=== PATIENT | female | born 1990 | race Caucasian/White ===

== ENCOUNTER 2024-08-07 02:00 | Inpatient (IN) ==
--- OUTSIDE RECORDS SUMMARY | 2024-08-07 02:14 | External Medical Summary | Summary of Care ---
Author Name Unknown Organization [facility] Address [address] [place] [address] Phone [phone] Care Team Providers Care Poundmaster Name Role Phone Unavailable Primary Care Provider Unavailabl e Reason for Visit * Reason Comments Return Visit Encounter Details Date Type Department Care Team (Late st Contact Info) Description 07/07/2024 10:45 AM EDT Office Visit Gynecology/Obstetric s [facility] [address] [place] [address] Reyna Wagner CRNP [address] [address] Encounter for supervision of other normal , unspecified trimester*; Umbilical cord cyst during , antepartum; Antepartum anemia complicating Allergies No known active allergiesdocumented as of this encounter (statuses as of 07/07/2024) Medications Gummies 0.18-25 MG Oral Tablet Chewable Take by mouth. Active Breast PumpIndications:B reast feeding status of mother BONNIE 08/04/24, Z39.1, double electric pump 1 Each 5 Active Iron-Vitamin C 65-125 MG Oral Tablet (Vitron C)Indications:Ant epartum anemia complicating Take 1 Tablet by mouth in the morning and 1 Tablet before bedtime. 60 Tablet 3 5 Active documented as of this encounter (statuses as of 07/07/2024) Active Problems Problem Noted Date Diagnosed Date Antepartum anemia complicating 025 Umbilical cord cyst during , antepartum 04/02/2024 Assessment & Plan (04/02/2024 2:28 PM EST): A very small (3mm) cord cyst was seen today adjacent to the umbilical vein in the [place]'s jelly near to the ACI. Color Doppler umbilical flow is seen around the cyst, but the cyst itself is anechoic with no flow internally. Umbilical cysts can occur at any point along the umbilical cord, including at the placental or insertion site. They occur due to mucoid or cystic degeneration of the [place] jelly or are embryonic duct remnants. They are usually a benign finding (pseudocyst with fluid accumulation in blanco's jelly) with no reported adverse outcomes. Differential diagnosis includes umbilical cord varix or umbilical artery aneurysm, however these would show flow on Doppler. A large, fast-growing umbilical cyst may compromise the umbilical cord, but in this case the cord appears normal. Size can be variable but they usually remain stable and some may resolve. We will reassess at ~32 weeks. As required by [place] Act 112, the Patient Test Result Information Act, I have discussed with the patient the significant findings from the diagnostic imaging service performed today. They have expressed their understanding and signed the acknowledgement form. Encounter for supervision of other normal , unspecified trimester 01/28/2024 Estimated Date of Delivery Comme nts Yes 08/04/2024 Based on last me nstrual period of 10/29/2023 (Exact Date) documented as of this encounter (statuses as of 07/07/2024) Resolved Problems Problem Noted Date Diagnosed Date Resolved Date Suspected problem with growth not found 04/02/2004/02/2024 Assessment & Plan (04/02/2024 2:24 PM EST): At your request, Kendal was seen today due to smaller head size on her anatomy survey. Prior report reviewed. Today the head size is on the lower end of the normal range and consistent with the rest of the biometry. Abnormal ultrasound 03/23/2024 Overview (03/23/2024): Biparietal diameter is at the 3rd percentile at 20 wks - to see MFM documented as of this encounter (statuses as of 07/07/2024) Social History Tobacco Use Types Packs/Day Years Used Date Smoking Tobacco: Never Smokeless Tobacco: Never Alcohol Use Standard Drinks/Week Comments Not Currently 0 (1 standard drink = 0.6 oz pur e alcohol) Hunger Vital Sign Answer Date Recorded Within the past 12 months, y ou worried that your food would run out before you got the money to buy more. Never true 03/09/20 24 Within the past 12 months, t he food you bought just didn't last and you didn't have money to get more. Never true 03/09/2024 [place] Depression Scale Answer Date Recorded [place] Depression Scale Total 0 06/18/2024 The thought of harming myself has occurred to me . Never 06/18/2024 Childcare Answer Date Recorded Do you feel overwhelmed with taking care of a child, family member or friend? No 03/09/2024 Does your family need help f inding childcare? (Household - for ages 0-17 years) Not on file 03/09/2024 Clothing Answer Date Recorded Have you been unable to get clothing when it was really needed? No 03/09/2024 Is your family able to get c lothes or diapers when needed? (Household - for ages 0-17 years) Not on file 03/09/2024 Personal Safety Answer Date Recorded Do you feel unsafe or have concerns for your saf ety? No 03/09/2024 Do you have concerns for you r family's safety? (Household - for ages 0-17 years) Not on file 03/09/2024 Utilities Answer Date Recorded Do you have trouble paying y our heating, water, or electric bill? No 03/09/2024 Is your family able to pay t he heat, water, or electric bill? (Household - for ages 0-17 years) Not on file 03/09/2024 Does your family have access to good internet? (Household - for ages 0-17 years) Not on file 03/09/2024 Employment Status Answer Date Recorded Are you unemployed or without regular income? No 03/09/2024 Does the household have a re gular source of income? (Household - for ages 0-17 years) Not on file 03/09/2024 Social Connections Answer Date Recorded How often do you feel lonely or isolated from th ose around you? Never 03/09/2024 Financial Resource Strain Answer Date R ecorded Do you have any trouble payi ng for your medications, or do you think you might in the future? No 03/09/2024 Does your family have troubl e paying for medicine? (Household - for ages 0-17 years) Not on file 03/09/2024 Transportation Needs Answer Date Record ed Do you have trouble getting a ride to medical visits or work? (Adult - for ages 18 years and over) Not on file 03/09/2024 Does your family have a hard time getting a ride to doctors visits? (Household - for ages 0-17 years) Not on file 03/09/2024 Has lack of transportation k ept you from medical appointments, meetings, work, or from getting things needed for daily living? Check all that apply. No 03/09/2024 Do you (or your family) have trouble finding or paying for a ride (transportation)? (Household - for ages 0-17 years) Not on file 03/09/2024 Housing Stability Answer Date Recorded Do you currently live in a s helter or have no steady place to sleep at night? No 03/09/2024 Do you think you are at risk of becoming homeless? (Adult - for ages 18 years and over) Not on file 03/09/2024 Does your family worry about paying for your home or becoming homeless? (Household - for ages 0-17 years) Not on file 1 05/09/2023 Are you homeless or worried that you might be in the future? No 03/09/2024 Are you (or your family) natalie eless or worried that you might be in the future? (Household - for ages 0-17 years) Not on file Food Insecurity Answer Date Recorded Do you need food for this week? No 03/09/2024 Are you able to get enough f ood for your family? (Household - for ages 0-17 years) Not on file 03/09/2024 Does your family need food t his week? (Household - for ages 0-17 years) Not on file 03/09/2024 Do you always have enough fo od for your family? (Household - for ages 0-17 years) Not on file 03/09/2024 Food Insecurity Answer Date Recorded Within the past 12 months, y ou worried that your food would run out before you got the money to buy more. Never true 03/09/20 24 Within the past 12 months, t he food you bought just didn't last and you didn't have money to get more. Never true 03/09/2024 Do you need food for this week? 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 Feeling great. Noticed a little swelling after taking a hike last weekend, otherwise no issues with edema. Unable to determine position- ?transverse. Will obtain u/s for position check with next visit. GBS today. Hygiene Assistant Documentation Provider requested sand shoveler. Name of sand shoveler: SHAMIKA Reece * Maddie Cook CMA - 07/07/2024 10:45 AM EDT 36w0d Denies any concerns GBS swab today documented in this encounter Plan of Treatment Upcoming Encounters Date Type Department Care Team (Late st Contact Info) Description 07/16/2024 3:30 PM EDT Imaging Radiology [facility] [address] [facility] [address] [place] [address] 07/16/2024 4:45 PM EDT Office Visit Gynecology/Obstetrics [facility] [address] [place] [address] Moriah Kulkarni PA-C [address] [place] [address] Pending Results Name Type Priority Associated Diagnoses Date /Time GROUP B STREP CULTURE/PCR Lab Routine Encounter for supervision of other normal , unspecified trimester 07/07/2024 11:02 AM EDT Scheduled Orders Name Type Priority Associated Diagnoses Orde r Schedule GROUP B STREP CULTURE/PCR Lab Routine Encounter for supervision of other normal , unspecified trimester Expected: 07/07/2024, Expires: 07/07/2025 US PREG LIMITED 1 OR MORE FETUSES Medical Imaging Routine Encounter for supervision of other normal , unspecified trimester Expected: 07/14/2024 (Approximate), Expires: 08/07/2025 Health Maintenance Due Date Last Done Comments Depression Screening 2001 Hepatitis B Vaccine (1 of 3 - 19+ 3-dose series) 2008 Pap Smear 2010 Cervical Cancer Screening 11/22/2019 HPV/Co-Test 11/22/2019 COVID-19 Vaccine ( - 2023-2 5 season) 2023 Influenza Vaccine (FLU shot) (#1) 2023 DTap/Tdap Vaccines (2 - Td o r Tdap) 2027 11/20/2017 HPV (Gardasil) Vaccine Aged Out No lo nger eligible based on patient's age to complete this topic MENINGOCOCCAL (MENACTRA/MENVEO) Aged Out No longer eligible based on patient's age to complete this topic Meningitis B Vaccine (Bexsero/Trumemba) Aged Out No longer eligible b ased on patient's age to complete this topic Pneumococcal Vaccine: Pediat rics (0 to 5 Years) and At-Risk Patients (6 to 18 Years and 19+ Years) Aged Out No longer eligible b ased on patient's age to complete this topic documented as of this encounter Medical Devices Not on filedocumented as of this encounter Visit Diagnoses Diagnosis Suspected problem with growth not found- Primary Umbilical cord cyst during , antepartum Encounter for anatomic survey 22 weeks gestation of state, incidental Encounter for supervision of other normal , unspecified trimester- Primary Umbilical cord cyst during , antepartum Antepartum anemia complicating Anemia, antepartum documented in this encounter
--- OUTSIDE RECORDS SUMMARY | 2024-08-07 02:14 | External Medical Summary | Summary of Care ---
Author Name Unknown Organization [facility] Address [address] [facility] [place] [address] Phone [phone] Care Team Providers Care Judge Name Role Phone Unavailable Primary Care Provider Unavailabl e Reason for Visit * Reason Comments Return Visit Encounter Details Date Type Department Care Team (Late st Contact Info) Description 07/16/2024 4:45 PM EDT Office Visit Gynecology/Obstetric s [facility] [address] [place] [address] Moriah Kulkarni PA-C [address] [place] [address] Encounter for supervision of other normal , unspecified trimester*; Umbilical cord cyst during , antepartum; Antepartum anemia complicating Allergies No known active allergiesdocumented as of this encounter (statuses as of 07/16/2024) Medications Gummies 0.18-25 MG Oral Tablet Chewable [...] as of this encounter (statuses as of 07/16/2024) Active Problems Problem Noted Date Diagnosed Date Antepartum anemia complicating 025 Umbilical cord cyst during , antepartum 04/02/2024 Assessment & Plan (04/02/2024 2:28 PM EST): A very small (3mm) cord cyst was seen today adjacent to the umbilical vein in the [place]'s jelly near to the ACI. Color Doppler umbilical flow is seen around the cyst, but the cyst itself is anechoic with no flow internally. Umbilical cysts can occur at any point along the umbilical cord, including at the placental or insertion site. They occur due to mucoid or cystic degeneration of the [place] jelly or are embryonic duct remnants. They [...] as of this encounter (statuses as of 07/16/2024) Resolved Problems Problem Noted Date Diagnosed Date [...] as of this encounter (statuses as of 07/16/2024) Social History Tobacco Use Types Packs/Day Years [...] money to get more. Never true 03/09/2024 [place] Depression Scale Answer Date Recorded [place] Depression Scale Total 0 06/18/2024 The thought [...] Sign Reading Time Taken Comments Blood Pressure 110/66 07/16/2024 3:28 PM EDT Pulse - - Temperature - - Respiratory Rate - - Oxygen Saturation - - Inhaled Oxygen Concentration - - Weight 89.8 kg (198 lb) 07/16/2024 3:28 PM EDT Height - - Body Mass Index 29.24 06/18/2024 7:46 AM EST documented in this encounter Progress Notes * Moriah Kulkarni PA-C - 07/16/2024 4:10 PM EDT 37w2d No complaints concerns. Denies regular ctx. No LOF, VB. Pos fm. U/s today -- confirms cephalic position RTC in 1 week Moriah Kulkarni PA-C * Muna Liao LPN - 07/16/2024 3:27 PM EDT 37w2d Denies vaginal bleeding/rom + movement Position check today- vertex documented in this encounter Plan of Treatment Upcoming Encounters Date Type Department Care Team (Late st Contact Info) Description 07/21/2024 3:00 PM EDT Office Visit Gynecology/Obstetrics [facility] [address] [place] [address] Reyna Wagner CRNP [address] [place] [phone] Health Maintenance Due Date Last Done Comments Depression Screening 2001 Hepatitis B Vaccine (1 of 3 - 19+ 3-dose series) 2008 Lipid Panel 2009 Pap Smear 2010 Cervical Cancer Screening 11/22/2019 HPV/Co-Test 11/22/2019 COVID-19 Vaccine (1 - 2023-2 5 season) 2023 Influenza Vaccine [...]
--- OUTSIDE RECORDS SUMMARY | 2024-08-07 02:14 | External Medical Summary | Summary of Care ---
Author Name Unknown Organization [facility] Address [address] [place] [address] Phone [phone] Care Team Providers Care Tree Marker Name Role Phone Unavailable Primary Care Provider Unavailabl e Reason for Visit * Reason Comments Outpatient Testing Encounter Details Date Type Department Care Team (Late st Contact Info) Description 07/07/2024 11:10 AM EDT Laboratory Laboratory, [facility] [address] [place] [address] [facility] [address] [place] [address] Arrived Allergies No known active allergiesdocumented as of [...] adjacent to the umbilical vein in the Bl[place]'s jelly near to the ACI. Color Doppler umbilical flow is seen around the cyst, but the cyst itself is anechoic with no flow internally. Umbilical cysts can occur at any point along the umbilical cord, including at the placental or insertion site. They occur due to mucoid or cystic degeneration of the [place] jelly or are embryonic duct remnants. They [...] money to get more. Never true 03/09/2024 [place] Depression Scale Answer Date Recorded [place] Depression Scale Total 0 06/18/2024 The thought [...] on file documented as of this encounter Plan of Treatment Upcoming Encounters Date Type Department Care Team (Late st Contact Info) Description 07/16/2024 3:30 PM EDT Imaging Radiology [facility] 2nd Floor, [place] [address] [place] [address] 07/16/2024 4:45 PM EDT Office Visit Gynecology/Obstetrics [facility] [address] [place] [address] Moriah Kulkarni PA-C [address] [place] [address] Health Maintenance Due Date Last Done Comments [...]
--- OUTSIDE RECORDS SUMMARY | 2024-08-07 02:14 | External Medical Summary | Summary of Care ---
Author Name Unknown Organization [facility] Address [address] [facility] [place] [address] Phone [phone] Care Team Providers Care Home Hospice Rn Name Role Phone Unavailable Primary Care Provider Unavailabl e Reason for Visit * Reason Comments Return Visit Encounter Details Date Type Department Care Team (Late st Contact Info) Description 08/06/2024 9:45 AM EDT Office Visit Gynecology/Obstetric s [facility] [address] [place] [address] Reyna Wagner CRNP [address] [facility] [place] [address] Post-term beyond 42 weeks, antepartum*; Encounter for supervision of other normal , unspecified trimester; Umbilical cord cyst during , antepartum; Antepartum anemia complicating Allergies No known active allergiesdocumented as of this encounter (statuses as of 08/06/2024) Medications Gummies 0.18-25 MG Oral Tablet Chewable [...] as of this encounter (statuses as of 08/06/2024) Active Problems Problem Noted Date Diagnosed Date Antepartum anemia complicating 025 Umbilical cord cyst during , antepartum 04/02/2024 Assessment & Plan (04/02/2024 2:28 PM EST): A very small (3mm) cord cyst was seen today adjacent to the umbilical vein in the [place]'s jelly near to the ACI. Color Doppler umbilical flow is seen around the cyst, but the cyst itself is anechoic with no flow internally. Umbilical cysts can occur at any point along the umbilical cord, including at the placental or insertion site. They occur due to mucoid or cystic degeneration of the [place] jelly or are embryonic duct remnants. They [...] as of this encounter (statuses as of 08/06/2024) Resolved Problems Problem Noted Date Diagnosed Date [...] as of this encounter (statuses as of 08/06/2024) Social History Tobacco Use Types Packs/Day Years [...] money to get more. Never true 03/09/2024 [place] Depression Scale Answer Date Recorded [place] Depression Scale Total 0 06/18/2024 The thought [...] Sign Reading Time Taken Comments Blood Pressure 128/78 08/06/2024 9:39 AM EDT Pulse - - Temperature - - Respiratory Rate - - Oxygen Saturation - - Inhaled Oxygen Concentration - - Weight 90.8 kg (200 lb 3.2 oz) 08/06/2024 9:39 A M EDT Height - - Body Mass Index 29.56 06/18/2024 7:46 AM EST documented in this encounter Progress Notes * Reyna Wagner CRNP - 08/06/2024 9:54 AM EDT 40w2d No concerns. Surprised she hasn't gone in to labor yet. No regular contractions, no bleeding or LOF. Baby is active. Agreeable to 42w IOL. Requesting cervical check. Photo Graphics Librarian Documentation Provider requested car supervisor. Name of car supervisor: SHAMIKA Reece * Maddie Cook CMA - 08/06/2024 9:39 AM EDT 40w2d Requesting cervical check today documented in this encounter Plan of Treatment Scheduled Orders Name Type Priority Associated Diagnoses Orde r Schedule US PREG LIMITED 1 OR MORE FETUSES Medical Imaging Routine Post-term beyond 42 weeks, antepartum Expected: 08/13/2024 (Approximate), Expires: 09/05/2025 Health Maintenance Due Date Last Done Comments Depression Screening 2001 Hepatitis B Vaccine (1 of 3 - 19+ 3-dose series) 2008 Lipid Panel 2009 Pap Smear 2010 Cervical Cancer Screening 11/22/2019 HPV/Co-Test 11/22/2019 COVID-19 Vaccine ( - 2023-2 5 season) 2023 Influenza Vaccine (FLU shot) (Season Ended) 2024 DTap/Tdap Vaccines (2 - Td o r [...] survey 22 weeks gestation of state, incidental Post-term beyond 42 weeks, antepartum- Primary Prolonged , antepartum condition or complication Encounter for supervision of other normal , unspecified trimester Umbilical cord cyst during , antepartum Antepartum anemia complicating Anemia, antepartum documented in this encounter
--- OUTSIDE RECORDS SUMMARY | 2024-08-07 02:14 | External Medical Summary | Summary of Care ---
Author Name Unknown Organization [facility] Address [address] [facility] [place] [address] Phone [phone] Care Team Providers Care Brewing Director Name Role Phone Unavailable Primary Care Provider Unavailabl e Reason for Visit * Reason Comments Return Visit Encounter Details Date Type Department Care Team (Late st Contact Info) Description 07/30/2024 2:15 PM EDT Office Visit Gynecology/Obstetric s [facility] Pham [address] [place] [address] Reyna Wagner CRNP [address] [facility] [place] [address] Encounter for supervision of other normal , unspecified trimester*; Umbilical cord cyst during , antepartum; Antepartum anemia complicating Allergies No known active allergiesdocumented as of this encounter (statuses as of 07/30/2024) Medications Gummies 0.18-25 MG Oral Tablet Chewable [...] as of this encounter (statuses as of 07/30/2024) Active Problems Problem Noted Date Diagnosed Date Antepartum anemia complicating 025 Umbilical cord cyst during , antepartum 04/02/2024 Assessment & Plan (04/02/2024 2:28 PM EST): A very small (3mm) cord cyst was seen today adjacent to the umbilical vein in the [place]'s jelly near to the ACI. Color Doppler umbilical flow is seen around the cyst, but the cyst itself is anechoic with no flow internally. Umbilical cysts can occur at any point along the umbilical cord, including at the placental or insertion site. They occur due to mucoid or cystic degeneration of the [place] jelly or are embryonic duct remnants. They [...] as of this encounter (statuses as of 07/30/2024) Resolved Problems Problem Noted Date Diagnosed Date [...] as of this encounter (statuses as of 07/30/2024) Social History Tobacco Use Types Packs/Day Years [...] money to get more. Never true 03/09/2024 [place] Depression Scale Answer Date Recorded [place] Depression Scale Total 0 06/18/2024 The thought [...] Sign Reading Time Taken Comments Blood Pressure 136/84 07/30/2024 2:15 PM EDT Pulse - - Temperature - - Respiratory Rate - - Oxygen Saturation - - Inhaled Oxygen Concentration - - Weight 91.2 kg (201 lb) 07/30/2024 2:15 PM EDT Height - - Body Mass Index 29.68 06/18/2024 7:46 AM EST documented in this encounter Progress Notes * Reyna Wagner CRNP - 07/30/2024 2:18 PM EDT 39w2d Feeling well. Baby is active. No contractions or bleeding. Asking for cervical check. Wants to wait to schedule IOL until next week- optimistic she will go in to labor spontaneously within the next week. Would like IOL as close to 42w as possible if it has to be scheduled. Transfer Car Operator Documentation Provider requested installer interior assemblies. Name of installer interior assemblies: SHAMIKA Reece * Maddie Cook CMA - 07/30/2024 2:15 PM EDT 39w2d Requesting cervical check documented in this encounter Plan of Treatment Health Maintenance Due Date Last Done Comments [...]
--- OUTSIDE RECORDS SUMMARY | 2024-08-07 02:14 | External Medical Summary | Summary of Care ---
Author Name Unknown Organization [facility] Address [address] [place] [facility] [place] [address] Phone [phone] Care Team Providers Care Educational Adviser Name Role Phone Unavailable Primary Care Provider Unavailabl e Reason for Visit * Reason Comments Return Visit Encounter Details Date Type Department Care Team (Late st Contact Info) Description 07/07/2024 10:45 AM EDT Office Visit Gynecology/Obstetric s Hillary Pham [address] [place] [address] Reyna Wagner CRNP [address] [place] [address] Encounter for supervision of other normal , [...] adjacent to the umbilical vein in the [place]'s jelly near to the ACI. Color Doppler umbilical flow is seen around the cyst, but the cyst itself is anechoic with no flow internally. Umbilical cysts can occur at any point along the umbilical cord, including at the placental or insertion site. They occur due to mucoid or cystic degeneration of the [place] jelly or are embryonic duct remnants. They [...] money to get more. Never true 03/09/2024 [place] Depression Scale Answer Date Recorded [place] Depression Scale Total 0 06/18/2024 The thought [...] position check with next visit. GBS today. Private Duty Rn Documentation Provider requested ampoule washing machine operator. Name of ampoule washing machine operator: SHAMIKA Reece * Maddie Cook CMA - 07/07/2024 10:45 AM EDT 36w0d Denies any concerns GBS swab today documented in this encounter Plan of Treatment Upcoming Encounters Date Type Department Care Team (Late st Contact Info) Description 07/16/2024 3:30 PM EDT Imaging Radiology [facility] [address] [place] [address] 07/16/2024 4:45 PM EDT Office Visit Gynecology/Obstetrics [facility] [address] [place] [address] Moriah Kulkarni PA-C [address] [place] [address] Pending Results Name Type Priority Associated Diagnoses [...]
--- OUTSIDE RECORDS SUMMARY | 2024-08-07 02:14 | External Medical Summary | Summary of Care ---
Author Name Unknown Organization [facility] Address [address] [facility] [place] [address] Phone [phone] Care Team Providers Care Curator Herbarium Name Role Phone Unavailable Primary Care Provider Unavailabl e Reason for Visit * Reason Comments Return Visit Encounter Details Date Type Department Care Team ([facility] st Contact Info) Description 06/18/2024 7:45 AM EST Office Visit Gynecology/Obstetric s [facility] [address] [place] [address] Moriah Kulkarni PA-C [address] [place] [address] Encounter for supervision of other normal , unspecified trimester*; Umbilical cord cyst during , antepartum; Antepartum anemia complicating Allergies No known active allergiesdocumented as of this encounter (statuses as of 06/18/2024) Medications Gummies 0.18-25 MG Oral Tablet Chewable [...] as of this encounter (statuses as of 06/18/2024) Active Problems Problem Noted Date Diagnosed Date [...] as of this encounter (statuses as of 06/18/2024) Resolved Problems Problem Noted Date Diagnosed Date [...] as of this encounter (statuses as of 06/18/2024) Social History Tobacco Use Types Packs/Day Years [...] money to get more. Never true 03/09/2024 [place] Depression Scale Answer Date Recorded [place] Depression Scale Total 0 01/28/2024 The thought of harming myself has occurred to me . Never 01/28/2024 Childcare Answer Date Recorded Do you feel [...] Sign Reading Time Taken Comments Blood Pressure 114/60 06/18/2024 7:46 AM EST Pulse - - Temperature - - Respiratory Rate - - Oxygen Saturation - - Inhaled Oxygen Concentration - - Weight 88.9 kg (196 lb) 06/18/2024 7:46 AM EST Height 175.3 cm (5' 9") 06/18/2024 7:46 AM EST Body Mass Index 28.94 06/18/2024 7:46 AM EST documented in this encounter Progress Notes * Moriah Kulkarni PA-C - 06/18/2024 7:59 AM EST 33w2d Denies concerns. Denies VB, LOF, contractions. Baby active. On PO iron for about 3 weeks. Discussed repeat labs next visit, she agreeable. Labor precautions given RTC in 2 weeks Moriah Kulkarni PA-C documented in this encounter Nursing Notes * Suzanne Carlson LPN - 06/18/2024 7:50 AM EST 33w1d Reviewed labor instructions. Denies concerns. documented in this encounter Plan of Treatment Upcoming Encounters Date Type Department Care Team ([place] st Contact Info) Description 07/07/2024 10:45 AM EDT Office Visit Gynecology/Obstetrics [facility] Ph[facility] [address] [place] [address] Reyna Wagner CRNP [address] [place] [address] Scheduled Orders Name Type Priority Associated Diagnoses Orde r Schedule CBC Lab Routine Antepartum anemia complicating Ordered: 06/18/2024 Health Maintenance Due Date Last Done Comments [...]
--- OUTSIDE RECORDS SUMMARY | 2024-08-07 02:14 | External Medical Summary ---
Author Name Unknown Address Unknown Organization [id number]:LAB[facility]ATORY [facility] [place] - [facility] [address] [place] [address] Laboratory Report Ordering Provider Test Date Status KEVIN ALICEA 07/07/2024 11:02:13 Final Observation Date Value Abnormality Reference (Units ) Status Streptococcus agalactiae DNA [Presence] in Specimen by FITO with probe detection 07/07/2024 11:02:13 Negative Negative Final No Group B Streptococcus det ected by culture-enhanced PCR (amplified probe). GBS GBSCT - [facility] 07/07/2024 11:02:13 0.0 Final GBS SPCCT - [facility] 07/07/2024 11:02:13 32.9 Final Performing Location [facility] [place] - [address] [place] [address]
--- OUTSIDE RECORDS SUMMARY | 2024-08-07 02:14 | External Medical Summary | Summary of Care ---
Author Name Unknown Organization [facility] Address [address] [place] [address] Phone [phone] Care Team Providers Care Cardiac Nurse Practitioner Name Role Phone Unavailable Primary Care Provider Unavailabl e Reason for Visit * Reason Comments Outpatient Testing Encounter Details Date Type Department Care Team (Late st Contact Info) Description 05/17/2024 9:00 AM EST Laboratory Laboratory, [facility] [address] [place] [phone] [facility] [address] [place] [address] Encounter for supervision of other normal , unspecified trimester Allergies No known active allergiesdocumented as of this encounter (statuses as of 05/17/2024) Medications Gummies 0.18-25 MG Oral Tablet Chewable Take by mouth. Active Breast PumpIndications :Breast feeding status of mother BONNIE 08/04/24, Z39.1, double electric pump 1 Each 04/30/2024 Active documented as of this encounter (statuses as of 05/17/2024) Active Problems Problem Noted Date Diagnosed Date Umbilical cord cyst during , antepartum 04/02/2024 [...] to mucoid or cystic degeneration of the [place] jelly or are embryonic duct remnants. They [...] as of this encounter (statuses as of 05/17/2024) Resolved Problems Problem Noted Date Diagnosed Date [...] as of this encounter (statuses as of 05/17/2024) Social History Tobacco Use Types Packs/Day Years [...] money to get more. Never true 03/09/2024 [place] Depression Scale Answer Date Recorded [place] Depression Scale Total 0 01/28/2024 The thought [...] ages 0-17 years) Not on file 03/09/2024 Estimated Date of Delivery Comme nts [...] Care Team (Late st Contact Info) Description 05/31/2024 7:45 AM EST Office Visit Gynecology/Obstetrics [facility] Ph[facility] [address] [place] [address] Moriah Kulkarni PA-C [address] [place] [address] 06/10/2024 9:30 AM EST Imaging Maternal Medicine Imaging, [facility] [address] [place] [phone] Pending Results Name Type Priority Associated Diagnoses Date /Time 50-G GESTATIONAL GLUCOSE, 1 HOUR Lab Routine Encounter for supervision of other normal , unspecified trimester 05/17/2024 9:50 AM EST SYPHILIS ANTIBODY SCREEN WITH REFLEX TO RPR Lab Routine Encounter for supervision of other normal , unspecified trimester 05/17/2024 9:50 AM EST CBC WITH WBC DIFFERENTIAL AND ANEMIA REFLEX WORKUP Lab Routine Encounter for supervision of other normal , unspecified trimester 05/17/2024 9:50 AM EST SYPHILIS ANTIBODY SCREEN Lab Routine Encounter for supervision of other normal , unspecified trimester 05/17/2024 9:50 AM EST ANEMIA CBC Lab Routine Encounter for supervision of other normal , unspecified trimester 05/17/2024 9:50 AM EST DIFFERENTIAL, AUTOMATED Lab Routine Encounter for supervision of other normal , unspecified trimester 05/17/2024 9:50 AM EST ANEMIA REFLEX CHEMISTRY HOLD Lab Routine Encounter for supervision of other normal , unspecified trimester 05/17/2024 9:50 AM EST Health Maintenance Due Date Last Done Comments [...] supervision of other normal , unspecified trimester documented in this encounter
--- OUTSIDE RECORDS SUMMARY | 2024-08-07 02:14 | External Medical Summary | Summary of Care ---
Author Name Unknown Organization [facility] Address [address] [facility] [place] [address] Phone [phone] Care Team Providers Care Sales Branch Manager Name Role Phone Unavailable Primary Care Provider Unavailabl e Reason for Visit * Reason Comments Return Visit Encounter Details Date Type Department Care Team (Late st Contact Info) Description 05/31/2024 7:45 AM EST Office Visit Gynecology/Obstetric s [facility] [address] [place] [address] Moriah Kulkarni PA-C [address] [place] [address] Encounter for supervision of other normal , unspecified trimester*; Umbilical cord cyst during , antepartum; Antepartum anemia complicating Allergies No known active allergiesdocumented as of this encounter (statuses as of 05/31/2024) Medications Gummies 0.18-25 MG Oral Tablet Chewable [...] as of this encounter (statuses as of 05/31/2024) Active Problems Problem Noted Date Diagnosed Date [...] as of this encounter (statuses as of 05/31/2024) Resolved Problems Problem Noted Date Diagnosed Date [...] as of this encounter (statuses as of 05/31/2024) Social History Tobacco Use Types Packs/Day Years [...] money to get more. Never true 03/09/2024 [place] Depression Scale Answer Date Recorded [place] Depression Scale Total 0 01/28/2024 The thought [...] Sign Reading Time Taken Comments Blood Pressure 116/70 05/31/2024 7:44 AM EST Pulse - - Temperature - - Respiratory Rate - - Oxygen Saturation - - Inhaled Oxygen Concentration - - Weight 88.9 kg (196 lb) 05/31/2024 7:44 AM EST Height 175.3 cm (5' 9") 05/31/2024 7:44 AM EST Body Mass Index 28.94 05/31/2024 7:44 AM EST documented in this encounter Progress Notes * Moriah Kulkarni PA-C - 05/31/2024 8:03 AM EST 30w5d Started Vitron C a week ago, some delay with pharmacy. Denies concerns. Denies VB, LOF, contractions. Baby is active. Would like to talk to M regarding follow up ultrasound. Advised to check with them first. RTC in 2 week Moriah Kulkarni PA-C documented in this encounter Nursing Notes * Suzanne Carlson LPN - 05/31/2024 7:47 AM EST 30w5d Denies concerns documented in this encounter Plan of Treatment Upcoming Encounters Date Type Department Care Team (Late st Contact Info) Description 06/10/2024 9:30 AM EST Imaging Maternal Medicine Imaging, [facility] [address] [facility] [place] [address] 06/18/2024 7:45 AM EST Office Visit Gynecology/Obstetrics Hillary Pham [address] [place] [address] Moriah Kulkarni PA-C [address] [place] [address] Health Maintenance Due Date Last Done Comments [...]
--- OUTSIDE RECORDS SUMMARY | 2024-08-07 02:14 | External Medical Summary | Summary of Care ---
Author Name Unknown Organization [facility] Address [address] [place] [address] Phone [phone] Care Team Providers Care Salesperson Men'S Furnishings Name Role Phone Unavailable Primary Care Provider Unavailabl e Reason for Visit * Reason Comments Return Visit Encounter Details Date Type Department Care Team (Late st Contact Info) Description 07/21/2024 3:00 PM EDT Office Visit Gynecology/Obstetric s Hillary Pham [address] [place] [address] Reyna Wagner CRNP [address] [facility] [place] [address] Encounter for supervision of other normal , unspecified trimester*; Umbilical cord cyst during , antepartum; Antepartum anemia complicating Allergies No known active allergiesdocumented as of this encounter (statuses as of 07/21/2024) Medications Gummies 0.18-25 MG Oral Tablet Chewable [...] as of this encounter (statuses as of 07/21/2024) Active Problems Problem Noted Date Diagnosed Date Antepartum anemia complicating 025 Umbilical cord cyst during , antepartum 04/02/2024 Assessment & Plan (04/02/2024 2:28 PM EST): A very small (3mm) cord cyst was seen today adjacent to the umbilical vein in the [place]'s jelly near to the ACI. Color Doppler umbilical flow is seen around the cyst, but the cyst itself is anechoic with no flow internally. Umbilical cysts can occur at any point along the umbilical cord, including at the placental or insertion site. They occur due to mucoid or cystic degeneration of the [place] jelly or are embryonic duct remnants. They [...] as of this encounter (statuses as of 07/21/2024) Resolved Problems Problem Noted Date Diagnosed Date [...] as of this encounter (statuses as of 07/21/2024) Social History Tobacco Use Types Packs/Day Years [...] money to get more. Never true 03/09/2024 [place] Depression Scale Answer Date Recorded [place] Depression Scale Total 0 06/18/2024 The thought [...] Sign Reading Time Taken Comments Blood Pressure 118/80 07/21/2024 2:54 PM EDT Pulse - - Temperature - - Respiratory Rate - - Oxygen Saturation - - Inhaled Oxygen Concentration - - Weight 90.5 kg (199 lb 9.6 oz) 07/21/2024 2:54 P M EDT Height - - Body Mass Index 29.48 06/18/2024 7:46 AM EST documented in this encounter Progress Notes * Reyna Wagner CRNP - 07/21/2024 3:11 PM EDT 38w No concerns. Good FM. No contractions, no bleeding or LOF. Discussed postdate IOL, politely declines. Asking for cervical check. Groundskeeper Supervisor Documentation Provider requested patient centered care specialist. Name of patient centered care specialist: Maddie * Maddie Cook CMA - 07/21/2024 2:54 PM EDT 38w0d Denies any concerns Requesting cervical check documented in this encounter Plan of Treatment Upcoming Encounters Date Type Department Care Team (Late st Contact Info) Description 07/30/2024 2:15 PM EDT Office Visit Gynecology/Obstetrics Hillary Pham [address] [place] [address] Reyna Wagner CRNP [address] [place] [address] Health Maintenance Due Date Last Done Comments [...]
--- OUTSIDE RECORDS SUMMARY | 2024-08-07 02:14 | External Medical Summary ---
Author Name Unknown Address Unknown Organization K0G:LABORATORY [facility] [place] [address] - [address] [place] [address] Laboratory Report Ordering Provider Test Date Status ANDERS PIERRE 07/07/2024 10:43:36 Final Observation Date Value Abnormality Reference (Units ) Status WBC, Total 07/07/2024 10:43:36 11.08 Above high normal 4 .00-10.80 (K/uL) Final RBC 07/07/2024 10:43:36 4.02 3.85-5.15 (M/uL) Final Hemoglobin 07/07/2024 10:43:36 12.3 12.0-15.3 (g/dL) Final HCT 07/07/2024 10:43:36 37.7 36.0-45.2 (%) Final MCV 07/07/2024 10:43:36 93.8 81.5-97.5 (fL) Final MCH 07/07/2024 10:43:36 30.6 27.0-34.0 (pg) Final MCHC 07/07/2024 10:43:36 32.6 32.0-36.0 (g/dL) Final RDW 07/07/2024 10:43:36 13.2 11.5-15.5 (%) Final Platelets 07/07/2024 10:43:36 190 140-400 (K /uL) Final MPV 07/07/2024 10:43:36 12.1 6.6-11.1 ( fL) Final Performing Location LABORATORY [facility] [place] [address] - [address] [place] [address]
--- OUTSIDE RECORDS SUMMARY | 2024-08-07 02:14 | External Medical Summary | Summary of Care ---
Author Name Unknown Organization [facility] Address [address] [place] [address] Phone [phone] Care Team Providers Care Vitreo Retinal Surgeon Name Role Phone Unavailable Primary Care Provider Unavailabl e Reason for Visit * Reason Onset Date Comments Follow Up 07/30/2024 Encounter Details Date Type Department Care Team (Late st Contact Info) Description 07/30/2024 Telephone [facility] [address] [facility] [place] [address] Reyna Wagner CRNP [address] [facility] [place] [address] Follow Up Allergies No known active allergiesdocumented as of [...] adjacent to the umbilical vein in the [place]'s jelly near to the ACI. Color Doppler umbilical flow is seen around the cyst, but the cyst itself is anechoic with no flow internally. Umbilical cysts can occur at any point along the umbilical cord, including at the placental or insertion site. They occur due to mucoid or cystic degeneration of the [place] jelly or are embryonic duct remnants. They [...] money to get more. Never true 03/09/2024 [place] Depression Scale Answer Date Recorded [place] Depression Scale Total 0 06/18/2024 The thought [...] on file documented as of this encounter Miscellaneous Notes * Telephone Encounter - Ashley Campuzano OSA - 07/30/2024 2:31 PM EDT Return in about 1 week (around 08/06/2024) for forrest. Nothing available. Please call to schedule. documented in this encounter Plan of Treatment [...]
--- OUTSIDE RECORDS SUMMARY | 2024-08-07 02:15 | External Medical Summary | Summary of Care ---
Author Name Unknown Organization [facility] Address [address] [place] [address] Phone [phone] Care Team Providers Care Code Enforcement Officer Name Role Phone Unavailable Primary Care Provider Unavailabl e Reason for Visit * Reason Onset Date Comments Referral 03/19/2024 Encounter Details Date Type Department Care Team ([facility] st Contact Info) Description 03/19/2024 Telephone Dental Office Assistant Obstetrics Maternal Medicine, [place] [address] [place], [place] [phone] [place], Nurse Dental Office Assistant [facility] [address] [place] [address] Referral Allergies No known active allergiesdocumented as of this encounter (statuses as of 03/19/2024) Medications Gummies 0.18-25 MG Oral Tablet Chewable Take by mouth. Active documented as of this encounter (statuses as of 03/19/2024) Active Problems Problem Noted Date Diagnosed Date Encounter for supervision of other normal , unspecified trimester 01/28/2024 Estimated Date of Delivery Comme nts Yes 08/04/2024 Based on last me nstrual period of 10/29/2023 (Exact Date) documented as of this encounter (statuses as of 03/19/2024) Social History Tobacco Use Types Packs/Day Years [...] money to get more. Never true 03/09/2024 [place] Depression Scale Answer Date Recorded [place] Depression Scale Total 0 01/28/2024 The thought [...] encounter Miscellaneous Notes * Telephone Encounter - Mickie Schrader OSA - 03/19/2024 10:35 AM EST Spoke with Kendal. Appointment scheduled. Patient aware of date, time and location of Maternal Medicine appointment. * Telephone Encounter - Susan Andre CCMA - 03/19/2024 10:00 AM EST Estimated Date of Delivery: 08/04/24 Please schedule for LONG SCAN, in time frame of within 1 week at location [facility] with the indication of HC and BPD <10th %ile. Referring Provider: Camila Gomez CRNP documented in this encounter Plan of Treatment Upcoming Encounters Date Type Department Care Team (Late st Contact Info) Description 03/23/2024 8:30 AM EST Office Visit Gynecology/Obstetrics [facility] [address] Camila Gomez CRNP [address] [place] [address] 04/02/2024 8:30 AM EST Office Visit Dental Office Assistant OB Maternal Medicine [facility] [place] [address] [place] [address] Dr [address] [facility] [address] Makenna Lynn, DO [address] [place] [address] 04/02/2024 8:30 AM EST Imaging Maternal Medicine [facility] [place] [address] [place] [address] Dr [address] [facility] [address] Health Maintenance Due Date Last Done Comments [...] 5 Years) and At-Risk Patients (6 to 64 Years) Aged Out No longer eligi ble based on patient's age to complete this topic documented as of this encounter Medical Devices Not on filedocumented as of this encounter
--- OUTSIDE RECORDS SUMMARY | 2024-08-07 02:15 | External Medical Summary | Summary of Care ---
Author Name Unknown Organization [facility] Address [address] [facility] [address] Phone [phone] Care Team Providers Care Durability Engineer Name Role Phone Unavailable Primary Care Provider Unavailabl e Reason for Visit * Reason Comments Return Visit Encounter Details Date Type Department Care Team ([facility] st Contact Info) Description 03/23/2024 8:30 AM EST Office Visit Gynecology/Obstetric s [facility] [address] [place] [address] BackerCamila CRNP [address] [place] [address] Encounter for supervision of other normal , unspecified trimester*; Abnormal ultrasound Allergies No known active allergiesdocumented as of this encounter (statuses as of 03/23/2024) Medications Gummies 0.18-25 MG Oral Tablet Chewable Take by mouth. Active documented as of this encounter (statuses as of 03/23/2024) Active Problems Problem Noted Date Diagnosed Date Abnormal ultrasound 03/23/2024 Overview (03/23/2024): Biparietal diameter is at the 3rd percentile at 20 wks - to see MFM Encounter for supervision of other normal , unspecified trimester 01/28/2024 Estimated Date of Delivery Comme nts Yes 08/04/2024 Based on last me nstrual period of 10/29/2023 (Exact Date) documented as of this encounter (statuses as of 03/23/2024) Social History Tobacco Use Types Packs/Day Years [...] money to get more. Never true 03/09/2024 [place] Depression Scale Answer Date Recorded [place] Depression Scale Total 0 01/28/2024 The thought [...] Sign Reading Time Taken Comments Blood Pressure 94/58 03/23/2024 8:21 AM EST Pulse - - Temperature - - Respiratory Rate - - Oxygen Saturation - - Inhaled Oxygen Concentration - - Weight 83.5 kg (184 lb) 03/23/2024 8:21 AM EST Height - - Body Mass Index 27.17 02/25/2024 8:18 AM EDT documented in this encounter Progress Notes * Camila Gomez CRNP - 03/23/2024 8:28 AM EST 20w6d Doing well, + movement. No cramping/bleeding. Having a girl! HC/BPD <10th %ile on anatomy scan, she is scheduled to see MFM next week. Discussed genetic testing now - she declines, prefers to wait until seen by MFM. Call with questions, concerns. SHAMIKA Ji documented in this encounter Plan of Treatment Upcoming Encounters Date Type Department Care Team (Late st Contact Info) Description 04/02/2024 8:30 AM EST Office Visit Scrap Preparation Supervisor OB Maternal Medicine [facility] [place] [address] [place] [address] [address] [place] [address] Makenna Lynn, DO [address] [facility] [address] 04/02/2024 8:30 AM EST Imaging Maternal Medicine [facility] Rich[address] Whatley [address] [place] [address] [address] [place] [address] 04/30/2024 8:30 AM EST Office Visit Gynecology/Obstetrics Hillary Pham [address] [place] [address] Backer, SHAMIKA Brody [address] [place] [address] Health Maintenance Due Date Last Done Comments [...] as of this encounter Visit Diagnoses Diagnosis Encounter for supervision of other normal , unspecified trimester- Primary Abnormal ultrasound Abnormal findings on screening documented in this encounter
--- OUTSIDE RECORDS SUMMARY | 2024-08-07 02:15 | External Medical Summary ---
Author Name Unknown Address Unknown Organization K01:[facility] [place] [address] [facility] [address] Laboratory Report Ordering Provider Test Date Status EDINSON [place]DERON 05/17/2024 09:50:36 Final Observation Date Value Abnormality Reference (Units ) Status TSH 05/17/2024 09:50:36 1.19 0.27-4.20 (uIU/mL) Final Performing Location [facility] - [address] [facility] [address]
--- OUTSIDE RECORDS SUMMARY | 2024-08-07 02:15 | External Medical Summary ---
Author Name Unknown Address Unknown Organization [id number]:LABORATORY [facility] [place] - [address] [place] [address] Laboratory Report Ordering Provider Test Date Status EDINSON CALDERON 05/17/2024 09:50:36 Final Observation Date Value Abnormality Reference (Units ) Status Vitamin B12 05/17/2024 09:50:36 [id number] (pg/mL) Final Performing Location [facility] - [address] [place] [address]
--- OUTSIDE RECORDS SUMMARY | 2024-08-07 02:15 | External Medical Summary | Summary of Care ---
Author Name Unknown Organization [facility] Address [address] [place] [address] Phone [phone] Care Team Providers Care Footwear Production Machine Operator Name Role Phone Unavailable Primary Care Provider Unavailabl e Reason for Visit * Reason Comments Return Visit Encounter Details Date Type Department Care Team ([facility] st Contact Info) Description 02/25/2024 8:30 AM EDT Office Visit Gynecology/Obstetric s Hillary Pham [address] [place] [address] BackerCamila CRNP [address] [facility] [place] [address] Encounter for supervision of other normal , unspecified trimester* Allergies No known active allergiesdocumented as of this encounter (statuses as of 02/25/2024) Medications Medication Sig Dispensed Refills Start Date End Date Status Gummies 0.18-25 MG Oral Tablet Chewable Take by mouth. Active documented as of this encounter (statuses as of 02/25/2024) Active Problems Problem Noted Date Diagnosed Date Encounter for supervision of other normal , unspecified trimester 01/28/2024 Estimated Date of Delivery Comme nts Yes 08/04/2024 Based on last me nstrual period of 10/29/2023 (Exact Date) documented as of this encounter (statuses as of 02/25/2024) Social History Tobacco Use Types Packs/Day Years Used Date Smoking Tobacco: Never Smokeless Tobacco: Never Alcohol Use Standard Drinks/Week Comments Not Currently 0 (1 standard drink = 0.6 oz pur e alcohol) Hunger Vital Sign Answer Date Recorded Within the past 12 months, y ou worried that your food would run out before you got the money to buy more. Never true 01/28/20 24 Within the past 12 months, t he food you bought just didn't last and you didn't have money to get more. Never true 01/28/2024 [place] Depression Scale Answer Date Recorded [place] Depression Scale Total 0 01/28/2024 The thought of harming myself has occurred to me . Never 01/28/2024 Childcare Answer Date Recorded Do you feel overwhelmed with taking care of a child, family member or friend? No 01/28/2024 Does your family need help f inding childcare? (Household - for ages 0-17 years) Not on file 01/28/2024 Clothing Answer Date Recorded Have you been unable to get clothing when it was really needed? No 01/28/2024 Is your family able to get c lothes or diapers when needed? (Household - for ages 0-17 years) Not on file 01/28/2024 Personal Safety Answer Date Recorded Do you feel unsafe or have concerns for your saf ety? No 01/28/2024 Do you have concerns for you r family's safety? (Household - for ages 0-17 years) Not on file 01/28/2024 Utilities Answer Date Recorded Do you have trouble paying y our heating, water, or electric bill? No 01/28/2024 Is your family able to pay t he heat, water, or electric bill? (Household - for ages 0-17 years) Not on file 01/28/2024 Does your family have access to good internet? (Household - for ages 0-17 years) Not on file 01/28/2024 Employment Status Answer Date Recorded Are you unemployed or without regular income? No 01/28/2024 Does the household have a re gular source of income? (Household - for ages 0-17 years) Not on file 01/28/2024 Social Connections Answer Date Recorded How often do you feel lonely or isolated from th ose around you? Never 01/28/2024 Financial Resource Strain Answer Date R ecorded Do you have any trouble payi ng for your medications, or do you think you might in the future? No 01/28/2024 Does your family have troubl e paying for medicine? (Household - for ages 0-17 years) Not on file 01/28/2024 Transportation Needs Answer Date Record ed Do you have trouble getting a ride to medical visits or work? (Adult - for ages 18 years and over) Not on file 01/28/2024 Does your family have a hard time getting a ride to doctors visits? (Household - for ages 0-17 years) Not on file 01/28/2024 Has lack of transportation k ept you from medical appointments, meetings, work, or from getting things needed for daily living? Check all that apply. No 01/28/2024 Do you (or your family) have trouble finding or paying for a ride (transportation)? (Household - for ages 0-17 years) Not on file 01/28/2024 Housing Stability Answer Date Recorded Do you currently live in a s helter or have no steady place to sleep at night? No 01/28/2024 Do you think you are at risk of becoming homeless? (Adult - for ages 18 years and over) Not on file 01/28/2024 Does your family worry about paying for your home or becoming homeless? (Household - for ages 0-17 years) Not on file 1 Are you homeless or worried that you might be in the future? No 01/28/2024 Are you (or your family) natalie eless or worried that you might be in the future? (Household - for ages 0-17 years) Not on file Food Insecurity Answer Date Recorded Do you need food for this week? No 01/28/2024 Are you able to get enough f ood for your family? (Household - for ages 0-17 years) Not on file 01/28/2024 Does your family need food t his week? (Household - for ages 0-17 years) Not on file 01/28/2024 Do you always have enough fo od for your family? (Household - for ages 0-17 years) Not on file 01/28/2024 Estimated Date of Delivery Comme nts Yes 08/04/2024 Based on last me nstrual period of 10/29/2023 (Exact Date) Sex and Gender Information Value Date Recorded Sex Assigned at Female 01/28/2024 11:00 AM EDT Gender Identity Female 01/28/2024 11:00 AM EDT Sexual Orientation Straight 01/28/2024 11 :00 AM EDT Job Start Date Occupation Industry Not on file Not on file Not on file documented as of this encounter Last Filed Vital Signs Vital Sign Reading Time Taken Comments Blood Pressure 96/62 02/25/2024 8:18 AM EDT Pulse - - Temperature - - Respiratory Rate - - Oxygen Saturation - - Inhaled Oxygen Concentration - - Weight 79.8 kg (176 lb) 02/25/2024 8:18 AM EDT Height 175.3 cm (5' 9") 02/25/2024 8:18 AM EDT Body Mass Index 25.99 02/25/2024 8:18 AM EDT documented in this encounter Progress Notes * Camila Gomez CRNP - 02/25/2024 8:34 AM EDT 17w0d Feeling well, noticing some flutters. No cramping/bleeding, nausea resolved. Declines genetic screening. Anatomy scan at 20+ weeks. SHAMIKA Ji documented in this encounter Nursing Notes * Suzanne Carlson LPN - 02/25/2024 8:20 AM EDT 17w0d Denies concerns. documented in this encounter Plan of Treatment Upcoming Encounters Date Type Department Care Team (Late st Contact Info) Description 03/18/2024 10:30 AM EST [facility] [address] [facility] [place] [address] 03/23/2024 8:30 AM EST Office Visit Gynecology/Obstetrics [facility] [address] [facility] [address] [place] [address] Camila Gomez CRNP [address] [place] [address] Scheduled Orders Name Type Priority Associated Diagnoses Orde r Schedule US PREG SINGLE/1ST GEST, 14 WEEKS OR LATER Medical Imaging Routine Encounter for supervision of other normal , unspecified trimester Expected: 03/17/2024 (Approximate), Expires: 03/27/2025 Health Maintenance Due Date Last Done Comments [...] of other normal , unspecified trimester- Primary documented in this encounter
--- OUTSIDE RECORDS SUMMARY | 2024-08-07 02:15 | External Medical Summary ---
Author Name Unknown Address Unknown Organization [id number]:[facility] [place] [address] [place] [address] Laboratory Report Ordering Provider Test Date Status KEVIN ALICEA 02/25/2024 08:17:25 Final Observation Date Value Abnormality Reference (Units) Status Bacteria identified in Specimen by Culture 02/25/2024 08:17:25 No significant growth Final Test: Culture, Urine, Quant itative
Specimen Source: Urine, Clean Catch
Specimen Type: Urine
Specimen Date: 02/25/2024816
Result Date: 02/26/2024 0955
Result Status: Final result
Resulting Lab: [facility]
[address]
[place] [address]

CULTURE

No significant growth

null Performing Location [facility] [place] - [address] [facility] [address]
--- OUTSIDE RECORDS SUMMARY | 2024-08-07 02:15 | External Medical Summary ---
Author Name Unknown Address Unknown Organization [id number]:LABORATORY [facility] - [address] [place] [address] Laboratory Report Ordering Provider Test Date Status EDINSON CALDERON 05/17/2024 09:50:36 Final Observation Date Value Abnormality Reference (Units ) Status Glucose [Moles/volume] in Serum or Plasma --1 hour post 50 g glucose PO 05/17/2024 09:50:36 104 70-129 (mg/dL) Final Performing Location LABORATORY [facility] - [address] [place] [address]
--- OUTSIDE RECORDS SUMMARY | 2024-08-07 02:15 | External Medical Summary | Summary of Care ---
Author Name Unknown Organization [facility] Address [address] [place] [address] Phone [phone] Care Team Providers Care Purchasing Buyer Name Role Phone Unavailable Primary Care Provider Unavailabl e Reason for Visit * Evaluate & Treat - Unlimited Visits (Within 10 days (routine)) - Authorized Specialty Diagnoses / Procedures Referred By Israel gordon Referred To Contact Obstetrics/Gynecology / Maternal Medicine Diagnoses Abnormal ultrasonic finding on screening of mother Encounter for supervision of other normal , unspecified trimester Backer, SHAMIKA Brody [address] [place] [address] Phone: tel: fax: Referral ID Status Reason Start Date Expiration Date Visits Requested Visits Authorized [id number] Authorized Specialty Services Required [phone] Encounter Details Date Type Department Care Team (Late st Contact Info) Description 04/02/2024 8:30 AM EST Office Visit Administrative Program Specialist [facility] Rich[facility] Whatley [address] [place] [address] [address] [place] [address] Makenna Lynn, DO [address] [place], [place] [id number] Suspected problem with growth not found*; Umbilical cord cyst during , antepartum; Encounter for anatomic survey; 22 weeks gestation of Allergies No known active allergiesdocumented as of this encounter (statuses as of 04/02/2024) Medications Gummies 0.18-25 MG Oral Tablet Chewable Take by mouth. Active documented as of this encounter (statuses as of 04/02/2024) Active Problems Problem Noted Date Diagnosed Date Umbilical cord cyst during , antepartum 04/02/2024 Assessment & Plan (04/02/2024 2:28 PM EST): A very small (3mm) cord cyst was seen today adjacent to the umbilical vein in the [place]'s jelly near to the ACI. Color Doppler umbilical flow is seen around the cyst, but the cyst itself is anechoic with no flow internally. Umbilical cysts can occur at any point along the umbilical cord, including at the placental or insertion site. They occur due to mucoid or cystic degeneration of the [place] jelly or are embryonic duct remnants. They [...] as of this encounter (statuses as of 04/02/2024) Resolved Problems Problem Noted Date Diagnosed Date [...] as of this encounter (statuses as of 04/02/2024) Social History Tobacco Use Types Packs/Day Years [...] money to get more. Never true 03/09/2024 [place] Depression Scale Answer Date Recorded [place] Depression Scale Total 0 01/28/2024 The thought [...] on file documented as of this encounter Progress Notes * Makenna Lynn, DO - 04/02/2024 2:28 PM EST MATERNAL MEDICINE VISIT Kendal Waddell presented today at 22w2d for an ultrasound and follow-up of her high risk . She was seen for the following indications: Problem List Items Addressed This Visit Suspected problem with growth not found - Primary At your request, Kendal was seen today due to smaller head size on her anatomy survey. Prior report reviewed. Today the head size is on the lower end of the normal range and consistent with the rest of the biometry. Umbilical cord cyst during , antepartum A very small (3mm) cord cyst was [...] to mucoid or cystic degeneration of the [place] jelly or are embryonic duct remnants. They are usually a benign finding (pseudocyst with fluid accumulation in blanco's jelly) with no reported adverse outcomes. Differential diagnosis includes umbilical cordvarix or umbilical artery aneurysm, however these would show flow on Doppler. A large, fast-growingumbilical cyst may compromise the umbilical cord, but in this case the cord appears normal. Size can be variable but they usually remain stable and some may resolve. We will reassess at ~32 weeks. As required by [employer] Act 112, the Patient Test Result Information Act, I have discussed withthe patient the significant findings from the diagnostic imaging service performed today. They haveexpressed their understanding and signed the acknowledgement form. Other Visit Diagnoses Encounter for anatomic survey 22 weeks gestation of We reviewed today's ultrasound findings. Follow up with MFM for ultrasound as clinically indicated. Small cord cyst. (For full details, please refer to ultrasound report provided separately). Ms. Waddell's questions were answered to her satisfaction. She was advised to contact our office or her OB provider for any additional questions regarding her . RECOMMENDATIONS: Recommend follow up ultrasound with MFM in 10 weeks for growth secondary to above indications. Thank you for allowing us to participate in the care of this patient. Please call with any questions. Makenna Lynn DO 04/02/2024 2:28 PM documented in this encounter Miscellaneous Notes * Assessment & Plan Note - Makenna Lynn DO - 04/02/2024 2:28 PM EST Associated Problem(s): Umbilical cord cyst during , antepartum A very small (3mm) cord cyst was seen today adjacent to the umbilical vein in the Green[place]'s jelly near to the ACI. Color Doppler [...] reported adverse outcomes. Differential diagnosis includes umbilical cordvarix or umbilical artery aneurysm, however these would show flow on Doppler. A large, fast-growingumbilical cyst may compromise the umbilical cord, but in this case the cord appears normal. Size can be variable but they usually remain stable and some may resolve. We will reassess at ~32 weeks. As required by [place] Act 112, the Patient Test Result Information Act, I have discussed withthe patient the significant findings from the diagnostic imaging service performed today. They haveexpressed their understanding and signed the acknowledgement form. * Assessment & Plan Note - Makenna Lynn DO - 04/02/2024 2:24 PM EST Associated Problem(s): Suspected problem with growth not found (Resolved 04/02/2024) At your request, Kendal was seen today due to smaller head size on her anatomy survey. Prior report reviewed. Today the head size is on the lower end of the normal range and consistent with the rest of the biometry. documented in this encounter Plan of Treatment Upcoming Encounters Date Type Department Care Team (Late st Contact Info) Description 04/30/2024 8:30 AM EST [facility] [address] [place] [address] Backer, SHAMIKA Brody [address] [place] [address] 06/10/2024 9:30 AM EST Imaging Maternal Medicine Imaging, Irene Pham [address] [place] [phone] Scheduled Orders Name Type Priority Associated Diagnoses Orde r Schedule MFM US PREG FOLLOW UP EACH FETUS Medical Imaging Routine Suspected problem with growth not found Umbilical cord cyst during , antepartum Encounter for anatomic survey 22 weeks gestation of 1 Occurrences starting 04/02/2024 until 07/01/2024 Health Maintenance Due Date Last Done Comments [...] survey 22 weeks gestation of state, incidental documented in this encounter
--- OUTSIDE RECORDS SUMMARY | 2024-08-07 02:15 | External Medical Summary | Summary of Care ---
Author Name Unknown Organization [facility] Address [address] [place] [address] Phone [phone] Care Team Providers Care Data Base Administrator Name Role Phone Unavailable Primary Care Provider Unavailabl e Reason for Visit * Reason Comments Outpatient Testing Encounter Details Date Type Department Care Team (Late st Contact Info) Description 05/17/2024 9:00 AM EST Laboratory Laboratory, [facility] [address] [place] [address] [facility] [address] [place] [address] Arrived Allergies No known active [...] adjacent to the umbilical vein in the [place]'s jelly near to the ACI. Color Doppler umbilical flow is seen around the cyst, but the cyst itself is anechoic with no flow internally. Umbilical cysts can occur at any point along the umbilical cord, including at the placental or insertion site. They occur due to mucoid or cystic degeneration of the [place] jelly or are embryonic duct remnants. They [...] money to get more. Never true 03/09/2024 [place] Depression Scale Answer Date Recorded [place] Depression Scale Total 0 01/28/2024 The thought [...] Imaging, Irene Pham [address] [place] [phone] Health Maintenance Due Date Last Done Comments Depression Screening 2001 Hepatitis B Vaccine (1 of 3 - 19+ 3-dose series) 2008 Pap Smear 2010 Cervical Cancer Screening 11/22/2019 HPV/Co-Test 11/22/2019 COVID-19 Vaccine (2023-2 5 season) 2023 Influenza Vaccine (FLU shot) [...]
--- OUTSIDE RECORDS SUMMARY | 2024-08-07 02:15 | External Medical Summary ---
Author Name Unknown Address Unknown Organization [id number]:LABORATORY [facility] [place] - [address] [place] [address] Laboratory Report Ordering Provider Test Date Status KVNGEDINSON 05/17/2024 09:50:36 Final Observation Date Value Abnormality Reference (Units ) Status Folic Acid 05/17/2024 09:50:36 12.4 >4.5 (ng/ mL) Final Performing Location [facility] - [address] [place] [address]
--- OUTSIDE RECORDS SUMMARY | 2024-08-07 02:15 | External Medical Summary | Summary of Care ---
Author Name Unknown Organization [facility] Address [address] [place] [facility] [place] [place] [address] Phone [phone] Care Team Providers Care Meat Specialist Name Role Phone Unavailable Primary Care Provider Unavailabl e Reason for Visit * Reason Comments Return Visit Encounter Details Date Type Department Care Team (Late st Contact Info) Description 04/30/2024 8:30 AM EST Office Visit Gynecology/Obstetric s [facility] [address] [place] [address] BackerCamila CRNP [address] [place] [address] Encounter for supervision of other normal , unspecified trimester*; Umbilical cord cyst during , antepartum; Breast feeding status of mother Allergies No known active allergiesdocumented as of this encounter (statuses as of 04/30/2024) Medications Gummies 0.18-25 MG Oral Tablet Chewable Take by mouth. Active Breast PumpIndications :Breast feeding status of mother BONNIE 08/04/24, Z39.1, double electric pump 1 Each 04/30/2024 Active documented as of this encounter (statuses as of 04/30/2024) Active Problems Problem Noted Date Diagnosed Date [...] to mucoid or cystic degeneration of the [place] jelly or are embryonic duct remnants. They [...] as of this encounter (statuses as of 04/30/2024) Resolved Problems Problem Noted Date Diagnosed Date [...] as of this encounter (statuses as of 04/30/2024) Social History Tobacco Use Types Packs/Day Years [...] money to get more. Never true 03/09/2024 [place] Depression Scale Answer Date Recorded [place] Depression Scale Total 0 01/28/2024 The thought [...] Sign Reading Time Taken Comments Blood Pressure 96/58 04/30/2024 8:21 AM EST Pulse - - Temperature - - Respiratory Rate - - Oxygen Saturation - - Inhaled Oxygen Concentration - - Weight 88.5 kg (195 lb) 04/30/2024 8:21 AM EST Height - - Body Mass Index 28.8 02/25/2024 8:18 AM EDT documented in this encounter Progress Notes * Camila Gomez CRNP - 04/30/2024 8:20 AM EST 26w2d Doing well, baby is active. No LOF/bleeding or contractions. Met with MFM - normal growth. Umbilical cyst noted on their scan, pt scheduled for follow up in a few weeks. Breast pump rx given to nursing. 2 week return w/labs. SHAMIKA Ji documented in this encounter Plan of Treatment Upcoming Encounters Date Type Department Care Team (Late st Contact Info) Description 05/17/2024 9:00 AM EST Office Visit Gynecology/Obstetrics Hillary Pham [address] [facility] [place] [address] Moriah Kulkarni PA-C [address] [place] [address] 05/17/2024 9:00 AM EST Laboratory Laboratory, [facility] [address] [place] [phone] Martha Pham [address] [facility] [place] [address] 06/10/2024 9:30 AM EST Imaging Maternal Medicine Imaging, [facility] [address] [facility] [place] [address] Scheduled Orders Name Type Priority Associated Diagnoses Orde r Schedule 50-G GESTATIONAL GLUCOSE, 1 HOUR Lab Routine Encounter for supervision of other normal , unspecified trimester Expected: 05/14/2024 (Approximate), Expires: 04/30/2025 SYPHILIS ANTIBODY SCREEN WITH REFLEX TO RPR Lab Routine Encounter for supervision of other normal , unspecified trimester Expected: 05/14/2024 (Approximate), Expires: 04/30/2025 CBC WITH WBC DIFFERENTIAL AND ANEMIA REFLEX WORKUP Lab Routine Encounter for supervision of other normal , unspecified trimester Expected: 05/14/2024 (Approximate), Expires: 04/30/2025 Health Maintenance Due Date Last Done Comments [...] Primary Umbilical cord cyst during , antepartum Breast feeding status of mother care and examination of lactating mother documented in this encounter
--- OUTSIDE RECORDS SUMMARY | 2024-08-07 02:15 | External Medical Summary ---
Author Name Unknown Address Unknown Organization [id number]:[facility]ORY [facility] [place] [address] [place] [address] Laboratory Report Ordering Provider Test Date Status EDINSON CALDERON 05/17/2024 09:50:36 Final Observation Date Value Abnormality Reference (Units ) Status Iron 05/17/2024 09:50:36 60 33-151 (ug/dL) Final Iron-binding capacity 05/17/2024 09:50:36 426 Above high normal 250-425 (ug/dL) Final Transferrin Sat % 05/17/2024 09:50:36 14 Below low normal 15-55 (%) Final Performing Location [facility] [place] [address] [place] [address]
--- OUTSIDE RECORDS SUMMARY | 2024-08-07 02:15 | External Medical Summary ---
Author Name Unknown Address Unknown Organization K01:LABORATORY [facility] - [address] [place] [address] Laboratory Report Ordering Provider Test Date Status KVNG,EDINSON 05/17/2024 09:50:36 Final Observation Date Value Abnormality Reference (Units ) Status Ferritin 05/17/2024 09:50:36 14 13-150 (ng /mL) Final Performing Location [facility] - [address] [place] [address]
--- OUTSIDE RECORDS SUMMARY | 2024-08-07 02:15 | External Medical Summary | Summary of Care ---
Author Name Unknown Organization [facility] Address [address] [facility] [place] [address] Phone [phone] Care Team Providers Care Superintendent Circus Name Role Phone Unavailable Primary Care Provider Unavailabl e Reason for Visit * Reason Comments Return Visit Encounter Details Date Type Department Care Team (Late st Contact Info) Description 05/17/2024 9:00 AM EST Office Visit Gynecology/Obstetric s [facility] [address] [place] [address] Moriah Kulkarni PA-C [address] [place] [address] Encounter for supervision of other normal , unspecified trimester*; Umbilical cord cyst during , antepartum Allergies No known active allergiesdocumented as of [...] money to get more. Never true 03/09/2024 [place] Depression Scale Answer Date Recorded [place] Depression Scale Total 0 01/28/2024 The thought [...] Sign Reading Time Taken Comments Blood Pressure 100/70 05/17/2024 8:57 AM EST Pulse - - Temperature - - Respiratory Rate - - Oxygen Saturation - - Inhaled Oxygen Concentration - - Weight 89.4 kg (197 lb) 05/17/2024 8:57 AM EST Height - - Body Mass Index 29.09 02/25/2024 8:18 AM EDT documented in this encounter Progress Notes * Moriah Kulkarni PA-C - 05/17/2024 9:09 AM EST 28w5d Completing third tri labs today. RH positive, no indication for Rhogam. Declines Tdap upon counseling. Denies LOF, VB, contractions. Baby is active. RTC in 2 weeks Moriah Kulkarni PA-C * Susan Aguirre RN - 05/17/2024 8:57 AM EST Declines Tdap. Due back in lab at 953. documented in this encounter Plan of Treatment Upcoming Encounters Date Type Department Care Team (Late st Contact Info) Description 05/31/2024 7:45 AM EST Office Visit [facility] [address] [place] [address] Moriah Kulkarni PA-C [address] [place] [address] 06/10/2024 9:30 AM EST Imaging Maternal Medicine Irene Campbells [address] [place] [address] Health Maintenance Due Date Last Done Comments [...] Primary Umbilical cord cyst during , antepartum documented in this encounter
--- OUTSIDE RECORDS SUMMARY | 2024-08-07 02:15 | External Medical Summary | Summary of Care ---
Author Name Unknown Organization [facility] Address [address] [place] [address] Phone [phone] Care Team Providers Care Assistant Director Of Public Works Name Role Phone Unavailable Primary Care Provider Unavailabl e Reason for Referral * Evaluate & Treat - Unlimited Visits (Within 10 days (routine)) - Authorized Specialty Diagnoses / Procedures Referred By Israel gordon Referred To Contact Obstetrics/Gynecology / Maternal Medicine Diagnoses Abnormal ultrasonic finding on screening of mother Encounter for supervision of other normal , unspecified trimester Camila Gomez CRNP [address] [facility] [address] Phone: tel: fax: Referral ID Status Reason Start Date Expiration Date Visits Requested Visits Authorized [id number] Authorized Specialty Services Required 4 [phone] Question Answer Referral Priority Within 10 days (routine) Has the patient had a viability scan? Yes Date performed 01/28/2024 Location performed Radiology Reason for referral Abnormal ultrasound findings Please provide additional details HC and BPD <10th %ile Where should this appointment be scheduled? Drea Comments /Para: LMP: Patient's last menstrual period was 10/29/2023 (exact date). Patient is . BONNIE: 08/04/2024, by Last Menstrual Period Pre-Gravid BMI: 24.36 Reason for Visit * Reason Onset Date Comments Test Results 03/19/2024 Encounter Details Date Type Department Care Team ([facility] st Contact Info) Description 03/19/2024 Telephone Gynecology/Obstetrics [facility] [address] [facility] [place] [address] Camila Gomez CRNP [address] [place] [id number] Test Results Allergies No known active allergiesdocumented as of [...] money to get more. Never true 03/09/2024 [place] Depression Scale Answer Date Recorded [place] Depression Scale Total 0 01/28/2024 The thought [...] No 03/09/2024 Does the household have a [facility] source of income? (Household - for ages [...] encounter Miscellaneous Notes * Telephone Encounter - Camila Gomez CRNP - 03/19/2024 9:33 AM EST Spoke w/pt and discussed u/s findings. Recommend MFM referral for further evaluation, she is agreeable. Aware of telemed visit and U/S at [facility] or [place]. SHAMIKA Ji * Telephone Encounter - Garcia Pa RN - 03/19/2024 9:01 AM EST Patient returned call, patient aware and verbalizes understanding. Patient would like a call back to discuss more and then will proceed with referral. Thanks, Garcia Pa, RN * Telephone Encounter - Camila Gomez CRNP - 03/19/2024 8:22 AM EST Called pt to discuss anatomy scan results, no answer. Generic VM left asking her to call triage. Baby's head measurements are below normal. Recommend MFM consult and u/s for more precise imaging. Consult will be telemed and in-person for u/s in [place] or [facility]. If agreeable, will order referral. Happy to chat with her if needed. SHAMIKA Ji documented in this encounter Plan of Treatment Upcoming Encounters Date Type Department Care Team (Late st Contact Info) Description 03/23/2024 8:30 AM EST Office Visit Gynecology/Obstetrics [facility] [address] [place] [address] Camila Gomez CRNP [address] [place] [address] Scheduled Orders Name Type Priority Associated Diagnoses Orde r Schedule MFM US MATERNAL 1ST FETUS Medical Imaging Routine Abnormal ultrasonic finding on screening of mother Encounter for supervision of other normal , unspecified trimester Expected: 03/26/2024 (Approximate), Expires: 04/18/2025 Scheduled Referrals Name Type Priority Associated Diagnoses Orde r Schedule MATERNAL MEDICINE REFERRAL OP Referral Within 10 days (routine) Abnormal ultrasonic finding on screening of mother Encounter for supervision of other normal , unspecified trimester Ordered: 03/19/2024 Health Maintenance Due Date Last Done Comments [...] as of this encounter Visit Diagnoses Diagnosis Abnormal ultrasonic finding on screening of mother- Primary Abnormal findings on screening Encounter for supervision of other normal , unspecified trimester documented in this encounter
--- OUTSIDE RECORDS SUMMARY | 2024-08-07 02:15 | External Medical Summary ---
Author Name Unknown Address Unknown Organization [id number]:LABORATORY [facility] - [address] [place] [address] Laboratory Report Ordering Provider Test Date Status EDINSON CALDERON 05/17/2024 09:50:36 Final Observation Date Value Abnormality Reference (Units ) Status Creatinine 05/17/2024 09:50:36 0.6 0.5-1.0 (mg/dL) Final Glomerular filtration rate/1.73 sq M.predicted [Volume Rate/Area] in Serum, Plasma or Blood by Creatinine-based formula (CKD-EPI) 05/17/2024 09:50:36 >90 >=60 (mL/min) Final eGFR is calculated based on the CKD-EPI 2020 equation. Performing Location LABORATORY [facility] - [address] [place] [address]
--- OUTSIDE RECORDS SUMMARY | 2024-08-07 02:15 | External Medical Summary ---
Author Name Unknown Address Unknown Organization [id number] [address] [place] [address] Laboratory Report Ordering Provider Test Date Status EDINSON CALDERON 05/17/2024 09:50:36 Final Observation Date Value Abnormality Reference (Units ) Status WBC, Total 05/17/2024 09:50:36 10.83 Above high normal 4 .00-10.80 (K/uL) Final RBC 05/17/2024 09:50:36 3.74 3.85-5.15 (M/uL) Final Hemoglobin 05/17/2024 09:50:36 11.5 Below low normal 12 .0-15.3 (g/dL) Final Anemia reflex testing trigge rs on a HGB < 12.0 for Females and HGB < 13.0 for Males in accordance with the WHO Anemia Guidelines
Anemia reflex testing triggers on a HGB < 12.0 for Females and HGB < 13.0 for Males in accordance with the WHO Anemia Guidelines HCT 05/17/2024 09:50:36 35.3 Below low normal 36. 0-45.2 (%) Final MCV 05/17/2024 09:50:36 94.4 81.5-97.5 (fL) Final MCH 05/17/2024 09:50:36 30.7 27.0-34.0 (pg) Final MCHC 05/17/2024 09:50:36 32.6 32.0-36.0 (g/dL) Final RDW 05/17/2024 09:50:36 12.9 11.5-15.5 (%) Final Platelets 05/17/2024 09:50:36 215 140-400 (K /uL) Final MPV 05/17/2024 09:50:36 11.9 6.6-11.1 ( fL) Final Performing Location LABORATORY [facility] - [address] [place] [address]
--- OUTSIDE RECORDS SUMMARY | 2024-08-07 02:15 | External Medical Summary ---
Author Name Unknown Address Unknown Organization [id number][facility] [address] [place] [address] Laboratory Report Ordering Provider Test Date Status EDINSON CALDERON 05/17/2024 09:50:36 Final Observation Date Value Abnormality Reference (Units ) Status SYNC LEUKOCYTES IN BLOOD BY AUTOMATED COUNT 05/17/2024 09:50:36 10.83 Above high normal 4.00-10.80 (K/uL) Final Segs 05/17/2024 09:50:36 80.1 Above high normal 40.0-75.0 (%) Final Lymphs % 05/17/2024 09:50:36 13.4 Below low normal 18.0-42.0 (%) Final Monos 05/17/2024 09:50:36 5.5 1.0-11.0 (%) Final Eosinophils 05/17/2024 09:50:36 0.7 0.0-6.0 (%) Final Basos 05/17/2024 09:50:36 0.3 0.0-2.0 (%) Final Absolute Segs 05/17/2024 09:50:36 8.67 Above high normal 1.80-7.70 (K/uL) Final Lymphs, absolute 05/17/2024 09:50:36 1.45 1.00-4.80 (K/ul) Final Monos, Abs 05/17/2024 09:50:36 0.60 0.00-1.10 (K/uL) Final Eos, Abs 05/17/2024 09:50:36 0.08 0.00-0.70 (K/uL) Final Basos, Abs 05/17/2024 09:50:36 0.03 0.00-0.20 (K/uL) Final [facility] [address] [place] [address]
--- OUTSIDE RECORDS SUMMARY | 2024-08-07 02:15 | External Medical Summary | Summary of Care ---
Author Name Unknown Organization [facility] Address [address] [place] [address] Phone [phone] Care Team Providers Care Waxer Floor Name Role Phone Unavailable Primary Care Provider Unavailabl e Reason for Visit * Reason Comments Outpatient Testing Encounter Details Date Type Department Care Team ([facility] st Contact Info) Description 02/25/2024 8:50 AM EDT Laboratory Laboratory, [facility] [address] [facility] [address] [place], Specimen Drop Off [facility] [address] [facility] [address] Encounter for supervision of other normal in second trimester Allergies No known active allergiesdocumented as [...] money to get more. Never true 01/28/2024 [place] Depression Scale Answer Date Recorded [place] Depression Scale Total 0 01/28/2024 The thought [...] as of this encounter Plan of Treatment Pending Results Name Type Priority Associated Diagnoses Date /Time CULTURE, URINE, QUANTITATIVE Lab Routine Encounter for supervision of other normal in second trimester 02/25/2024 8:17 AM EDT Health Maintenance Due Date Last Done Comments [...] Diagnosis Encounter for supervision of other normal in second trimester documented in this encounter
[2024-08-07] MEDS: OXYTOCIN 30 UNITS/NSS 30 UNITS/500 ML BAG IV PRN (04:00)
[2024-08-07] MEDS ORDERED: LIDOCAINE 1% LOCAL 20 ML VIAL INFIL PRN (04:05)
[2024-08-07] MEDS ORDERED: LACTATED RINGER'S 1,000 ML IV PRN ×2 (04:05→04:08)
[2024-08-07] MEDS ORDERED: OXYTOCIN 30 UNITS/NSS 30 UNITS/500 ML BAG IV PRN ×2 (04:08→04:12)
[2024-08-07] MEDS ORDERED: ACETAMINOPHEN 325 MG TAB PO PRN ×2 (04:08→04:12)
[2024-08-07] MEDS ORDERED: bisacodyL 10 MG SUPP PR PRN (04:12)
[2024-08-07] MEDS ORDERED: oxyCODONE/ACETAMINOPHEN 5mg/325mg TAB PO PRN (04:12)
[2024-08-07] MEDS ORDERED: HYDROCORTISONE ACETATE 25 MG SUPP PR PRN (04:12)
[2024-08-07] MEDS ORDERED: ACETAMINOPHEN W/CODEINE #3 1 TAB PO PRN (04:12)
[2024-08-07] MEDS ORDERED: IBUPROFEN 600 MG TAB PO PRN (04:12)
--- NOTE | 2024-08-07 04:16 | Delivery Summary ---
Vaginal Delivery Summary Date of Service August 07, 2024 Vaginal Delivery Summary Patient's been followed in the office for care and delivery. She is a 5 para 3. Admitted in active labor 8 cm dilated. At 40 weeks and 2 days gestation. Patient's beta strep negative. Patient's had all of her deliveries unmedicated. On admission her contractions were somewhat sporadic. She did bring the head down and fully clear the cervix. There was some forewaters which were ruptured. Then with about 6 contractions she pushed out a live female infant via direct occiput anterior position over an intact perineum. Cord was allowed to remain intact for 5 minutes at the patient's request. It was then cut by the father and Cord blood was obtained. The perineum was intact. Patient had a midline clitoral laceration which bled profusely. This was repaired by injecting with local with epinephrine. And then using 4 interrupted sutures of 3-0 Vicryl. This approximated the tear and stop the bleeding. A red rubber catheter was then used to empty the bladder. The placenta was removed intact. Quantitative blood loss was 317 mL. Pitocin was used to contract the uterus. Patient tolerated delivery well.
[2024-08-07 04:30] LABS: Hematocrit (blood only) 37.3 % (37.0-47.0); Hemoglobin 12.5 g/dl (12.0-16.0); Mean Corpuscular Hgb Conc 33.5 g/dL (32.0-36.0); Mean Corpuscular Volume 89.7 fL (80.0-100.0); Mean Platelet Volume 12.3 fL (9.4-12.4); Platelet Count 152 K/uL (130-400); RDW Coefficient of Variation 13.3 % (11.5-14.5); RDW Standard Deviation 43.8 fL (36.4-46.3); Red Blood Count 4.16 M/uL (4.20-5.40); White Blood Count 19.38 K/ul (4.8-10.8)
[2024-08-07] MEDS: LIDOCAINE 1% LOCAL 20 ML VIAL ONE (06:24)
[2024-08-07] MEDS: DIPHTHER/TETAN/PERTUS Vaccine (Tdap, Adol/Adult) 0.5mL IM ONE (06:25)
[2024-08-07] MEDS: BENZOCAINE 20% SPRY 85 APPLN/85 GM CAN EXT PRN (07:56)
[2024-08-07] MEDS: COUGH DROP (SUGAR FREE) LOZ 24 LOZ/1 BOX BUCCAL ONE (07:56)
[2024-08-07] MEDS: PRENATAL VITAMIN 1 TAB PO SCH (10:58)
[2024-08-07] MEDS: DOCUSATE SODIUM 100 MG CAP PO SCH (19:55)
[2024-08-07 20:25] VITALS: TEMP 98.2
[2024-08-08 08:14] LABS: Hematocrit (blood only) 31.4 % (37.0-47.0); Hemoglobin 10.6 g/dl (12.0-16.0); Mean Corpuscular Hemoglobin 30.7 pg (25.0-34.0); Mean Corpuscular Hgb Conc 33.8 g/dL (32.0-36.0); Mean Platelet Volume 12.2 fL (9.4-12.4); Platelet Count 173 K/uL (130-400); RDW Coefficient of Variation 13.4 % (11.5-14.5); RDW Standard Deviation 44.8 fL (36.4-46.3); Red Blood Count 3.45 M/uL (4.20-5.40); White Blood Count 12.26 K/ul (4.8-10.8)
--- NOTE | 2024-08-08 10:10 | Obstetrical Progress Note ---
Date of Service August 08, 2024 Assessment & Plan (1) Anemia, : Post day #1 Vaginal delivery Pt doing well No complaints Stable vitals Stable labs. H/H: 10.6/31/.4 Tolerating PO food and med Pt wishes to be discharged home Results & Data Vital Signs (Past 12 Hours) Vital Signs Temp Pulse Resp BP Pulse Ox O2 Del Method 08/07/24 23:45 36.8 C 84 18 121/82 99 Room Air
[2024-08-08 10:16] VITALS: BP 117/78; PULSE 92; RESP 14; O2SAT 98
[2024-08-08] MEDS ORDERED: bisacodyL 5 MG TABEC PO SCH (20:00)
== END 2024-08-08 11:15 | disposition home or self-care (01) | DRG 807 ==
LOC: OPB 02:00 → 4S1 02:09 → 4E2 13:07